=== PATIENT | male | born 1980 | race Hispanic/Latino ===

== ENCOUNTER 2020-12-25 07:42 | Emergency (ER) | payer OTHER ==
[2020-12-25] MEDS ORDERED: ONDANSETRON 4 MG/2 ML INJ IV ONE (08:31)
[2020-12-25] MEDS ORDERED: SODIUM CHLORIDE 0.9% 1000 ML 1,000 ML IV ONE (08:31)
--- NOTE | 2020-12-25 08:34 | Emergency Department Report ---
ED Abdominal Pain HPI - General Chief Complaint: Abdominal Pain Stated Complaint: VOMITING Time Seen by Provider: 12/25/20 08:21 Source: patient Mode of arrival: Ambulatory Limitations: No Limitations - History of Present Illness Initial Comments: 40-year-old male presents to the emergency room stating he has had vomiting since Monday. He states that he has little abdominal pain feels more like a had eaten some bad sushi. Patient states that he had vomited blood this morning. He does admit to vaping denies any EtOH only socially and does smoke cigarettes. Patient denies any drug use. Currently has no abdominal pain at this time. Patient has no medical history has had a surgical history of right arm and shoulder. Currently has no primary care provider. Onset/Timin -: days(s) Location: diffuse Severity scale (0 -10): 6 Quality: other (Feels like he ate bad sushi) Worsens With: vomiting Context: possible food poisoning Associated Symptoms: nausea, vomiting - Related Data Previous Rx's Medication Instructions Recorded Last Taken Type Ondansetron [Zofran Odt] 4 mg PO Q8HR #8 tab.rapdis 12/25/20 Unknown Rx Allergies Allergy/AdvReac Type Severity Reaction Status Date / Time No Known Allergies Allergy Unverified 12/25/20 07:44 ED Review of Systems ROS: Stated complaint: VOMITING Other details as noted in HPI Comment: All other systems reviewed and negative ED Past Medical Hx - Past Medical History Previous Medical History?: No - Surgical History Past Surgical History?: Yes Additional Surgical History: Right arm and shoulder surgery - Medications Home Medications: Home Medications Medication Instructions Recorded Confirmed Last Taken Type Ondansetron [Zofran Odt] 4 mg PO Q8HR #8 tab.rapdis 12/25/20 Unknown Rx ED Physical Exam - General Limitations: No Limitations General appearance: alert - Head Head exam: Present: atraumatic, normocephalic - Eye Eye exam: Present: normal appearance - ENT ENT exam: Present: mucous membranes moist, normal external ear exam - Neck Neck exam: Present: normal inspection, full ROM - Respiratory Respiratory exam: Absent: accessory muscle use - Cardiovascular Cardiovascular Exam: Present: regular rate - GI/Abdominal GI/Abdominal exam: Present: soft. Absent: tenderness ED Course Vital Signs 12/25/20 07:47 Temperature 98.2 F Pulse Rate 94 H Respiratory 18 Rate Blood Pressure 157/104 [Right] O2 Sat by Pulse 97 Oximetry ED Medical Decision Making - Lab Data Result diagrams: 12/25/20 08:38 12/25/20 08:38 Laboratory Tests 12/25/20 12/25/20 12/25/20 08:38 08:38 08:38 WBC 10.5 RBC 5.41 H Hgb 18.3 H Hct 52.1 H MCV 96 H MCH 34 H MCHC 35 H RDW 13.2 Plt Count 335 Lymph % (Auto) 30.5 [place] % (Auto) 7.3 Eos % (Auto) 0.8 Baso % (Auto) 0.5 Lymph # (Auto) 3.2 [place] # (Auto) 0.8 Eos # (Auto) 0.1 Baso # (Auto) 0.1 Seg Neutrophils % 60.9 Seg Neutrophils # 6.4 Sodium 140 Potassium 3.4 L Chloride 100.3 Carbon Dioxide 26 Anion Gap 17 BUN 14 Creatinine 0.8 Estimated GFR > 60 BUN/Creatinine Ratio 18 Glucose 120 H Calcium 9.9 Total Bilirubin 0.70 AST 34 ALT 53 Alkaline Phosphatase 103 Total Protein 7.8 Albumin 4.8 Albumin/Globulin Ratio 1.6 Lipase 11 L Urine Color Urine Turbidity Urine pH Ur Specific [place] Urine Protein Urine Glucose (UA) Urine Ketones Urine Blood Urine Nitrite Urine Bilirubin Urine Urobilinogen Ur Leukocyte Esterase Urine WBC (Auto) Urine RBC (Auto) Urine Mucus Urine Opiates Screen Urine Methadone Screen Ur Barbiturates Screen Ur Phencyclidine Scrn Ur Amphetamines Screen U Benzodiazepines Scrn Urine Cocaine Screen U Marijuana (THC) Screen Drugs of Abuse Note Plasma/Serum Alcohol < 0.01 12/25/20 12/25/20 09:57 09:57 WBC RBC Hgb Hct MCV MCH MCHC RDW Plt Count Lymph % (Auto) [place] % (Auto) Eos % (Auto) Baso % (Auto) Lymph # (Auto) [place] # (Auto) Eos # (Auto) Baso # (Auto) Seg Neutrophils % Seg Neutrophils # Sodium Potassium Chloride Carbon Dioxide Anion Gap BUN Creatinine Estimated GFR BUN/Creatinine Ratio Glucose Calcium Total Bilirubin AST ALT Alkaline Phosphatase Total Protein Albumin Albumin/Globulin Ratio Lipase Urine Color Whit Urine Turbidity Slightly-cloudy Urine pH 5.0 Ur Specific [place] 1.032 H Urine Protein 100 mg/dl Urine Glucose (UA) Neg Urine Ketones Neg Urine Blood Neg Urine Nitrite Neg Urine Bilirubin Neg Urine Urobilinogen 4.0 Ur Leukocyte Esterase Neg Urine WBC (Auto) 6.0 Urine RBC (Auto) 2.0 Urine Mucus 3+ Urine Opiates Screen Negative Urine Methadone Screen Negative Ur Barbiturates Screen Negative Ur Phencyclidine Scrn Negative Ur Amphetamines Screen Negative U Benzodiazepines Scrn Negative Urine Cocaine Screen Negative U Marijuana (THC) Screen Negative Drugs of Abuse Note Disclamer Plasma/Serum Alcohol - Medical Decision Making 40-year-old male presents to the emergency room stating he has had vomiting since Monday. He states that he has little abdominal pain feels more like a had eaten some bad sushi. Patient states that he had vomited blood this morning. He does admit to vaping denies any EtOH only socially and does smoke cigarettes. Patient denies any drug use. Currently has no abdominal pain at this time. Patient has no medical history has had a surgical history of right arm and shoulder. Currently has no primary care provider. Patient initiated fluids labs Zofran.. Patient reports that he feels much better and is ready to be discharged home. Critical care attestation.: If time is entered above; I have spent that time in minutes in the direct care of this critically ill patient, excluding procedure time. ED Disposition Clinical Impression: Nausea and vomiting in adult patient Disposition: DC-01 TO HOME OR SELFCARE Is pt being admited?: No Does the pt Need Aspirin: No Condition: Stable Instructions: Nausea and Vomiting, Adult, [id number] Additional Instructions: All labs are within normal limits. Recommend to follow-up with a primary care provider I have listed 1 below for your convenience. Take the Zofran as needed for the nausea and vomiting. If symptoms worsen return back to the emergency room. Prescriptions: Ondansetron [Zofran Odt] 4 mg PO Q8HR #8 tab.rapdis Referrals: ZENON ORANTES MD [Staff Physician] - 3-5 Days Forms: Work/School Release Form(ED)
[2020-12-25 09:01] LABS: Basophils # (Auto) 0.1 K/mm3 (0.0-0.1); Basophils % (Auto) 0.5 % (0.0-1.8); Eosinophils # (Auto) 0.1 K/mm3 (0.0-0.4); Eosinophils % (Auto) 0.8 % (0.0-4.3); Hematocrit 52.1 % (35.5-45.6); Hemoglobin 18.3 gm/dl (11.8-15.2); Lymphocytes # (Auto) 3.2 K/mm3 (1.2-5.4); Lymphocytes % (Auto) 30.5 % (13.4-35.0); Mean Corpuscular HGB Conc 35 % (32-34); Mean Corpuscular Volume 96 fl (84-94); Monocytes # (Auto) 0.8 K/mm3 (0.0-0.8); Monocytes % (Auto) 7.3 % (0.0-7.3); Platelet Count 335 K/mm3 (140-440); Red Blood Count 5.41 M/mm3 (3.65-5.03); Red Cell Distribution Width 13.2 % (13.2-15.2)
[2020-12-25 10:10] LABS: Alanine Aminotransferase 53 units/L (7-56); Albumin 4.8 g/dL (3.9-5); BUN/Creatinine Ratio 18; Blood Urea Nitrogen 14 mg/dL (9-20); Calcium 9.9 mg/dL (8.4-10.2); Hemolysis Index 14
[2020-12-25 10:14] LABS: Bilirubin,Urine NEG (Negative); Blood,Urine NEG (Negative); Color,Urine Amber (Yellow); Mucus,Urine 3+ /HPF
[2020-12-25 10:17] LABS: Amphetamine Screen,Urine Negative; Benzodiazepines Screen,Urine Negative; Cannabinoid Screen,Urine Negative; Cocaine Screen,Urine Negative; Methadone Screen,Urine Negative; Opiate Screen,Urine Negative
[2020-12-25 11:54] VITALS: BP 142/88
== END 2020-12-25 11:52 | disposition home or self-care (01) ==
LOC: ED 07:42
DX: R11.2 Nausea with vomiting, unspecified (principal); R10.84 Generalized abdominal pain; Z98.890 Other specified postprocedural states; Z79.899 Other long term (current) drug therapy
CPT/HCPCS: 36415; 80053; 80307; 81001; 83690; 85025; 96361; 96374; 99283; J2405; J7030; 80320; G0480

== ENCOUNTER 2021-02-02 22:58 | Emergency (ER) | payer OTHER ==
--- NOTE | 2021-02-02 23:55 | Emergency Department Report ---
ED Male HPI - General Stated complaint: PELVIC PAIN Time Seen by Provider: 02/02/21 23:42 Source: patient - History of Present Illness Initial comments: 40-year-old male, no past medical history, presents to ED with urinary ret ention. Patient states he has been unable to urinate since yesterday. Patient states this has happened a few times in the past, but eventually was able to urinate without having to come to the emergency room. Patient reports recent methamphetamine and fentanyl use. MD Complaint: other -: days(s) (1) Radiation: none Severity: moderate Quality: aching Consistency: constant Improves with: none Worsens with: none denies other symptoms. denies: swelling, fever - Related Data Previous Rx's Medication Instructions Recorded Last Taken Type Ondansetron [Zofran Odt] 4 mg PO Q8HR #8 tab.rapdis 12/25/20 Unknown Rx Allergies Allergy/AdvReac Type Severity Reaction Status Date / Time No Known Allergies Allergy Unverified 12/25/20 07:44 ED Review of Systems ROS: Stated complaint: PELVIC PAIN Other details as noted in HPI Comment: All other systems reviewed and negative Constitutional: denies: fever Genitourinary: as per HPI ED Past Medical Hx - Surgical History Additional Surgical History: Right arm and shoulder surgery - Medications Home Medications: Home Medications Medication Instructions Recorded Confirmed Last Taken Type Ondansetron [Zofran Odt] 4 mg PO Q8HR #8 tab.rapdis 12/25/20 Unknown Rx ED Physical Exam - General General appearance: alert, in no apparent distress - Head Head exam: Present: atraumatic, normocephalic - Eye Eye exam: Present: normal appearance, EOMI - ENT ENT exam: Present: mucous membranes moist - Neck Neck exam: Present: normal inspection - Respiratory Respiratory exam: Present: normal lung sounds bilaterally. Absent: respiratory distress - GI/Abdominal GI/Abdominal exam: Present: soft, tenderness (Suprapubic). 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 Absent: erythema, swelling, ecchymosis, bleeding - Extremities Exam Extremities exam: Present: normal inspection - Neurological Exam Neurological exam: Present: alert, oriented X3 - Psychiatric Psychiatric exam: Present: normal affect, normal mood - Skin Skin exam: Present: warm, dry, intact, normal color ED Course Vital Signs 02/02/21 23:55 Temperature 98.6 F Pulse Rate 94 H Respiratory 22 Rate Blood Pressure 115/84 [Left] O2 Sat by Pulse 100 Oximetry ED Medical Decision Making - Lab Data Result diagrams: 02/02/21 23:56 02/02/21 23:56 - Medical Decision Making 40-year-old male presents to ED for urinary retention. Labs unremarkable. Pt will be switched to a leg bag and discharged at this time. Outpatient f/u with urology advised. Return precautions given. Critical care attestation.: If time is entered above; I have spent that time in minutes in the direct care of this critically ill patient, excluding procedure time. ED Disposition Clinical Impression: Acute urinary retention Disposition: - TO HOME OR SELFCARE Is pt being admited?: No Condition: Stable Instructions: Substance Use Disorder, Acute Urinary Retention, Male Referrals: FERNANDO OZUNA MD [Primary Care Provider] - 3-5 Days RADHA BRUCE MD [Staff Physician] - 3-[address] [facility] [Provider Group] - 3-5 Days Time of Disposition: 00:57
[2021-02-02 23:57] VITALS: BP 115/84
[2021-02-03] MEDS ORDERED: ONDANSETRON 4 MG ODT TAB PO ONE (00:16)
[2021-02-03 00:38] LABS: Basophils % (Auto) 0.6 % (0.0-1.8); Eosinophils % (Auto) 0.2 % (0.0-4.3); Lymphocytes # (Auto) 1.9 K/mm3 (1.2-5.4); Lymphocytes % (Auto) 30.7 % (13.4-35.0); Mean Corpuscular HGB Conc 36 % (32-34); Mean Corpuscular Volume 95 fl (84-94); Monocytes # (Auto) 0.9 K/mm3 (0.0-0.8); Monocytes % (Auto) 14.5 % (0.0-7.3); Platelet Count 211 K/mm3 (140-440); Red Blood Count 4.74 M/mm3 (3.65-5.03); Red Cell Distribution Width 12.9 % (13.2-15.2)
[2021-02-03 00:39] LABS: Hematocrit 44.9 % (35.5-45.6)
[2021-02-03 00:39] LABS: Bacteria,Urine 1+ /HPF (Negative); Bilirubin,Urine NEG (Negative); Blood,Urine NEG (Negative); Color,Urine Amber (Yellow); Hyaline Casts,Urine 2 /LPF; Mucus,Urine 3+ /HPF
[2021-02-03 00:50] LABS: BUN/Creatinine Ratio 16; Blood Urea Nitrogen 14 mg/dL (9-20); Calcium 8.9 mg/dL (8.4-10.2); Hemolysis Index 5
== END 2021-02-03 01:44 | disposition home or self-care (01) ==
LOC: ED 22:58
DX: R33.9 Retention of urine, unspecified (principal)
CPT/HCPCS: 36415; 80048; 81001; 85025; 99283

== ENCOUNTER 2021-02-04 18:01 | Emergency (ER) | payer OTHER ==
--- NOTE | 2021-02-04 20:36 | Emergency Department Report ---
ED Male HPI - General Chief complaint: Urogenital-Male Stated complaint: NEED CATHER REMOVE Time Seen by Provider: 02/04/21 20:22 Source: patient Mode of arrival: Ambulatory Limitations: No Limitations - History of Present Illness Initial comments: 40-year-old male presents to the ER today requesting that his Mercado catheter be removed. Patient was seen here on 02/02/2021 for urinary retention and had a Mercado catheter placed. Patient states that this is the first time he is about to have a Mercado catheter. He denies any known prostate issues. He was given referral to urology, but he states that he called 3 times and no one has returned his call. He states that he is scheduled to return to work tomorrow and he cannot go to work with the Mercado catheter in. He states that it is irritating, and it is causing pain to his penis. He states that the urine is flowing through the Mercado catheter and he denies any bleeding. He denies any abdominal pain, testicular pain or swelling, back pain, fever or chills. Complaint: other (Mercado catheter removal ) -: days(s) (2) - Related Data Previous Rx's Medication Instructions Recorded Last Taken Type Ondansetron [Zofran Odt] 4 mg PO Q8HR #8 tab.rapdis 12/25/20 Unknown Rx Allergies Allergy/AdvReac Type Severity Reaction Status Date / Time No Known Allergies Allergy Verified 02/04/21 18:35 ED Review of Systems ROS: Stated complaint: NEED CATHER REMOVE Other details as noted in HPI Comment: All other systems reviewed and negative Constitutional: denies: chills, fever Eyes: denies: eye pain, eye discharge, vision change ENT: denies: ear pain, throat pain, dental pain, hearing loss, congestion Cardiovascular: denies: chest pain, palpitations, dyspnea on exertion, edema, syncope, paroxysmal nocturnal dyspnea Endocrine: no symptoms reported Gastrointestinal: denies: abdominal pain, nausea, vomiting, diarrhea, constipation, hematemesis, melena, hematochezia Genitourinary: denies: urgency, dysuria, frequency, hematuria, discharge, testicular pain, testicular mass Musculoskeletal: denies: back pain, joint swelling, arthralgia Skin: denies: rash, lesions, change in color, change in hair/nails, pruritus Neurological: denies: headache, weakness, numbness, paresthesias, confusion, abnormal gait, vertigo Psychiatric: denies: anxiety, depression, auditory hallucinations, visual hallucinations, homicidal thoughts, suicidal thoughts Hematological/Lymphatic: denies: easy bleeding, easy bruising, swollen glands ED Past Medical Hx - Past Medical History Previous Medical History?: No - Surgical History Additional Surgical History: Right arm and shoulder surgery - Medications Home Medications: Home Medications Medication Instructions Recorded Confirmed Last Taken Type Ondansetron [Zofran Odt] 4 mg PO Q8HR #8 tab.rapdis 12/25/20 Unknown Rx ED Physical Exam - General Limitations: No Limitations General appearance: alert, in no apparent distress - Head Head exam: Present: atraumatic, normocephalic, normal inspection - Eye Eye exam: Present: normal appearance, PERRL, EOMI Pupils: Present: normal accommodation - Neck Neck exam: Present: normal inspection, full ROM - Respiratory Respiratory exam: Absent: respiratory distress - Cardiovascular Cardiovascular Exam: Present: regular rate - GI/Abdominal GI/Abdominal exam: Present: soft. Absent: distended, tenderness, guarding, rebound - exam: Present: normal inspection, other (Mercado catheter attached to leg bag noted in place . Dark yellow urine noted to be fluid through . No penile bleeding, swelling, or erythema noted. No testicular swelling tenderness or pain noted) External exam: Present: normal external exam - Neurological Exam Neurological exam: Present: alert, oriented X3, CN II-XII intact, normal gait - Psychiatric Psychiatric exam: Present: normal affect, normal mood - Skin Skin exam: Present: intact ED Course Vital Signs 02/04/21 18:38 Temperature 98.0 F Pulse Rate 101 H Respiratory 20 Rate Blood Pressure 144/119 O2 Sat by Pulse 99 Oximetry ED Medical Decision Making - Medical Decision Making Patient presented to the ER requesting that he have his Mercado catheter removed. He was placed 2 days ago after coming in with complaints of urinary retention. He stated that he called the urologist 3 times with no one returning his calls. He states that he scheduled to work tomorrow and he does not want to go to work with the Mercado catheter because it is irritating and causing discomfort to his penis. Patient was given clear warnings, that there is a chance that his urinary symptoms can occur again and he will need to come back to have a Mercado catheter placed. Patient expressed understanding of this but still opted to have it removed. Mercado catheter was removed by me without any complications. Patient was able to urinate after removal of the Mercado catheter. Patient was encouraged to still try to follow-up with the urologist as this can become a recurrent problem for him and to have his prostate evaluated. Patient expressed understanding of all instructions and agree with plan. Patient was stable at time of discharge Critical care attestation.: If time is entered above; I have spent that time in minutes in the direct care of this critically ill patient, excluding procedure time. ED Disposition Clinical Impression: Encounter for Mercado catheter removal Disposition: DC- TO HOME OR SELFCARE Is pt being admited?: No Does the pt Need Aspirin: No Condition: Stable Instructions: Acute Urinary Retention, Male Additional Instructions: Recommend that you still try to follow-up with a local urologist because this can be a re -occurring problem for you. Return to ED if anything changes or worsens in anyway. Referrals: RADHA BRUCE MD [Staff Physician] - 3-5 Days Time of Disposition: 20:36
[2021-02-05 04:13] VITALS: BP 124/82
== END 2021-02-04 20:50 | disposition home or self-care (01) ==
LOC: ED 18:01
DX: Z46.6 Encounter for fitting and adjustment of urinary device (principal); Z79.899 Other long term (current) drug therapy; Z98.890 Other specified postprocedural states
CPT/HCPCS: 99282